=== PATIENT | female | born 1965 | race Caucasian/White ===

== ENCOUNTER → 2017-08-11 | Outpatient (CLI) | payer OTHER, BC ==
[~2017-08-11] MED LIST: [UNRECOGNIZED DRUG - OTHER] MC
== END | disposition home or self-care (01) ==
LOC: CDC 11:38 → SDC 11:38 → CDC 12:20
DX: M25.561 Pain in right knee (principal); M17.11 Unilateral primary osteoarthritis, right knee; M23.41 Loose body in knee, right knee; M25.461 Effusion, right knee
CPT/HCPCS: 93000